=== PATIENT | male | born 1935 | race Hispanic/Latino ===

== ENCOUNTER 2018-05-24 07:57 | Day surgery (SDC) | payer MEDICARE ==
[2018-05-23 09:12] VITALS: BMI 31.1
[2018-05-24] MEDS ORDERED: Lidocaine 2% Inj (20ml) ONE (09:02)
[2018-05-24] MEDS ORDERED: Iohexol 350mgl/ml 50 ML ONE (09:02)
[2018-05-24] MEDS ORDERED: Iodixanol 320 MG/ML 200 ML BOTTLE IV ONE (09:02)
[2018-05-24] MEDS ORDERED: Midazolam 2 MG/2 ML VIAL ONE ×2 (09:30→09:45)
[2018-05-24] MEDS ORDERED: Sodium Chloride 0.9% 1,000 ML IV SCH (10:30)
[2018-05-24 11:27] VITALS: RESP 20
[2018-05-24 13:59] VITALS: BP 126/78; PULSE 60; TEMP 98; O2SAT 96
--- NOTE | 2018-05-24 20:08 | CARDCATH ---
PROCEDURE DATE: 05/24/2018 CARDIAC CATHETERIZATION REPORT PROCEDURE: 1. Selective left and right coronary angiography. 2. Left ventriculography. 3. Right femoral arteriography. 4. Mynx deployment. HISTORY: This is an 83-year-old man with multiple cardiac risk factors who underwent recent preoperative stress test prior to needed nephrectomy. Stress test showed a large inferolateral and apical defect, and cardiac catheterization was advised. INDICATIONS: Abnormal stress test. FINDINGS: HEMODYNAMICS: The aortic pressure was 120/70. Left ventricular pressure 120/10. CORONARY ANATOMY: 1. The left main stem had a 70% ostial stenosis as well as 40% distal tapering. 2. The left anterior ascending artery had mild irregularities in its proximal mid segment, the distal vessel was of moderate size. The diagonal branch has had minimal disease. 3. The left circumflex artery was dominant. This is the large vessel with a complex 95% stenosis in its late proximal portion. The lesion was eccentric. The obtuse marginal branch is in the posterior ascending artery, had mild disease. The vessels were fairly large. 4. The right coronary artery was small and nondominant. LEFT VENTRICULOGRAPHY: A hand injection was performed in the left ventricle revealing a super normal wall motion and ejection fraction of 65%. RIGHT FEMORAL ARTERIOGRAPHY: Right femoral arteriogram was performed in the area of projection. The puncture site appeared to be at the bifurcational area, SFA and profunda branches. The puncture site was then closed with deployment of Mynx device. CONCLUSION: 1. 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 2. Preserved LV systolic function. RECOMMENDATIONS: Given the above findings of left main and circumflex system disease, revascularization with coronary artery bypass surgery is advised. Urgent arrangements will be made for this given his need for the nephrectomy in the near future. Herrera Berry MD cc: Michael Davidson MD
== END 2018-05-24 14:00 | disposition home or self-care (01) ==
LOC: CATH 07:57
PROVIDERS: ATTEND Internal Medicine Cardiovascular Disease
DX: I25.10 Atherosclerotic heart disease of native coronary artery without angina pectoris (principal); I10 Essential (primary) hypertension; R94.39 Abnormal result of other cardiovascular function study; N28.89 Other specified disorders of kidney and ureter
CPT/HCPCS: 36415; 86850; 86900; 93458; 99152; C1760; C1769; C1887; C2629; J1644; J2250; J3010; J7030; Q9966; Q9967